=== PATIENT | female | born 2000 | race Caucasian/White ===

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

== ENCOUNTER 2021-06-24 23:26 | Outpatient (CLI) | payer SELFPAY ==
[2021-06-25 00:13] VITALS: BP 115/74
--- NOTE | 2021-06-25 01:46 | Ultrasound Report ---
OBSTETRIC ULTRASOUND INDICATION: EGA, placenta, EFW, presentation, full MALCOM COMPARISON: No prior relevant imaging studies are available for comparison. TECHNIQUE: Transabdominal imaging was performed. FINDINGS: Single viable intrauterine is identified. lie: Transverse. Heart rate: 153 bpm. measurements are as follows: Biparietal diameter 8.8 cm, 35 weeks 4 days Head circumference 33.0 cm, 37 weeks 4 days Abdominal circumference 33.7 cm, 37 weeks 4 days Femur length 6.8 cm, 34 weeks 6 days Estimated weight at this time is 6 lbs. 10 oz. No placental abnormalities are seen. CONCLUSION: Single viable intrauterine currently in transverse position with measurements as above. Amn iotic fluid index is 18.3 cm, within normal limits. Signer Name: Alexis Blanchard MD Signed: 06/25/2021 1:42 AM Workstation Name: [id number]
[2021-06-25 01:55] LABS: Bilirubin,Urine NEG (Negative); Blood,Urine SM (Negative); Color,Urine Straw (Yellow); Mucus,Urine FEW /HPF; Protein,Urine <15 mg/dL mg/dL (Negative); Urobilinogen,Urine < 2.0 mg/dL (<2.0)
[2021-06-25 01:58] LABS: Amphetamine Screen,Urine Negative; Benzodiazepines Screen,Urine Negative; Cocaine Screen,Urine Negative; Methadone Screen,Urine Negative; Opiate Screen,Urine Negative
[2021-06-25 02:12] LABS: Cannabinoid Screen,Urine Positive
[2021-06-25 02:22] LABS: Basophils # (Auto) 0.1 K/mm3 (0.0-0.1); Basophils % (Auto) 0.7 % (0.0-1.8); Eosinophils % (Auto) 0.5 % (0.0-4.3); Hematocrit 27.4 % (30.3-42.9); Hemoglobin 8.7 gm/dl (10.1-14.3); Lymphocytes # (Auto) 2.5 K/mm3 (1.2-5.4); Lymphocytes % (Auto) 30.9 % (13.4-35.0); Mean Corpuscular HGB Conc 32 % (30-34); Mean Corpuscular Volume 79 fl (79-97); Monocytes # (Auto) 0.4 K/mm3 (0.0-0.8); Monocytes % (Auto) 4.9 % (0.0-7.3); Platelet Count 115 K/mm3 (140-440); Red Blood Count 3.47 M/mm3 (3.65-5.03); Red Cell Distribution Width 15.1 % (13.2-15.2)
[2021-06-25 02:50] LABS: HCG,Quantitative 7506 mIU/mL (0-4)
[2021-06-25 02:59] LABS: Hepatitis C Virus Antibody Non-Reactive (NonReactive)
== END 2021-06-25 02:40 | disposition home or self-care (01) ==
LOC: TRG 23:26 → APU 23:28 → TRG 06-25 02:40
PROVIDERS: ATTEND Obstetrics & Gynecology
DX: O26.893 Other specified pregnancy related conditions, third trimester (principal); R10.9 Unspecified abdominal pain; Z3A.37 37 weeks gestation of pregnancy
CPT/HCPCS: 36415; 59025; 76816; 80307; 81001; 84702; 85025; 86592; 86706; 86762; 86803; 86850; 86900; 86901; 87086; 87806

== ENCOUNTER 2021-06-28 02:22 | Inpatient (IN) | payer SELFPAY ==
[2021-06-28 03:58] LABS: Amphetamine Screen,Urine PRESUMPTIVE NEGATIVE; Benzodiazepines Screen,Urine PRESUMPTIVE NEGATIVE; Cannabinoid Screen,Urine PRESUMPTIVE POSITIVE; Cocaine Screen,Urine PRESUMPTIVE NEGATIVE; Methadone Screen,Urine PRESUMPTIVE NEGATIVE; Opiate Screen,Urine PRESUMPTIVE NEGATIVE
[2021-06-28 04:22] LABS: Bilirubin,Urine Negative (Negative); Color,Urine Yellow (Yellow)
[2021-06-28 04:23] LABS: Blood,Urine Negative (Negative); Protein,Urine <15 mg/dL mg/dL (Negative)
[2021-06-28 04:48] LABS: RBC,Urine < 1.0 /HPF (0.0-6.0)
[2021-06-28] MEDS ORDERED: ONDANSETRON 4 MG/2 ML INJ IV PRN ×2 (05:33→08:59)
[2021-06-28] MEDS ORDERED: ACETAMINOPHEN 325 MG TAB PO PRN (05:33)
[2021-06-28] MEDS ORDERED: AMPICILLIN/NS 2 GM/100 ML 2 GM/100 ML BAG IV ONE (05:33)
[2021-06-28] MEDS ORDERED: DOCUSATE SODIUM 100 MG CAP PO PRN (05:33)
--- NOTE | 2021-06-28 05:39 | Ultrasound Report ---
ULTRASOUND OBSTETRIC LIMITED INDICATION / CLINICAL INFORMATION: MALCOM. Clinical Gestational Age (GA) in weeks, days: 37, 4 TECHNIQUE: Transabdominal. COMPARISON: 06/25/21 FINDINGS: HEART RATE (beats per minute): 148 AMNIOTIC FLUID INDEX (cm) = 8.1 (normal = 7-24 cm) PRESENTATION: Cephalic. ADDITIONAL FINDINGS: None. IMPRESSION: 1. Amniotic fluid index within normal limits measuring 8.1 cm. Signer Name: Oksana Cruz MD Signed: 06/28/2021 5:35 AM Workstation Name: [id number]
[2021-06-28] MEDS: LACTATED RINGERS 1,000 ML IV SCH ×2 (05:59→08:20)
[2021-06-28 06:05] LABS: Basophils # (Auto) 0.1 K/mm3 (0.0-0.1); Basophils % (Auto) 0.5 % (0.0-1.8); Eosinophils # (Auto) 0.1 K/mm3 (0.0-0.4); Eosinophils % (Auto) 1.2 % (0.0-4.3); Hematocrit 28.5 % (30.3-42.9); Hemoglobin 9.1 gm/dl (10.1-14.3); Lymphocytes # (Auto) 3.6 K/mm3 (1.2-5.4); Lymphocytes % (Auto) 34.8 % (13.4-35.0); Mean Corpuscular HGB Conc 32 % (30-34); Mean Corpuscular Volume 80 fl (79-97); Monocytes # (Auto) 0.6 K/mm3 (0.0-0.8); Platelet Count 128 K/mm3 (140-440); Red Blood Count 3.57 M/mm3 (3.65-5.03); Red Cell Distribution Width 15.5 % (13.2-15.2)
[2021-06-28 06:57] LABS: Hepatitis C Virus Antibody Non-Reactive (NonReactive)
--- NOTE | 2021-06-28 07:47 | History and Physical Report ---
History of Present Illness Date of examination: 06/28/21 Date of admission: 06/28/21 05:33 Chief complaint: contractions History of present illness: Pt presents at 37.4 weeks dated by lmp c/w sono she had done on 06/24/21 in triage c/o contractions. She had not had any care this . She had cervical change to 5cm from 4cm while in triage. Pt admitted for observation of labor change. Plan of care d/w pt. All questions were addressed and answered. Will start ampicillin at this time as pt labor may progress and w/o care, her GBS status is not known. Past History Past Medical History: no pertinent history Past Surgical History: no surgical history [employer] History: denies: abnormal PAP smear - Obstetrical History Expected Date of Delivery: 07/15/21 Actual Gestation: 37 Week(s) 4 Day(s) : 6 Medications and Allergies Allergies Allergy/AdvReac Type Severity Reaction Status Date / Time No Known Allergies Allergy Verified 01/03/17 13:16 Home Medications Medication Instructions Recorded Confirmed Last Taken Type No Known Home Medications [No 07/07/19 07/07/19 Unknown History Reported Home Medications] Active Meds: Active Medications Acetaminophen (Acetaminophen 325 Mg Tab) 650 mg PO Q4H PRN PRN Reason: Pain MILD(1-3)/Fever >100.5/LUCIO Docusate Sodium (Docusate Sodium 100 Mg Cap) 100 mg PO Q12H PRN PRN Reason: Constipation Lactated Ringer's (Lactated Ringers) 1,000 mls @ 125 mls/hr IV DIRECT ÁNGEL Last Admin: 06/28/21 05:59 Dose: 125 mls/hr Documented by: Multivitamins/Iron/Calcium ( [id number]-Or Fumarate-Folic Acid Vit Tab) 1 each PO QDAY ÁNGEL Ondansetron HCl (Ondansetron 4 Mg/2 Ml Inj) 4 mg IV Q6H PRN PRN Reason: Nausea And Vomiting - Vital Signs Vital signs: Vital Signs Temp Pulse Resp BP Pulse Ox 98.5 F 70 18 118/72 100 06/28/21 03:03 06/28/21 03:03 06/28/21 03:03 06/28/21 03:03 06/28/21 03:03 Temp Pulse Resp BP Pulse Ox 98.5 F 69 18 118/72 100 06/28/21 03:03 06/28/21 07:07 06/28/21 03:03 06/28/21 03:06 06/28/21 07:07 - Physical Exam Cardiovascular: Normal S1, Normal S2 Lungs: Positive: Clear to auscultation, Normal air movement Deep Tendon Reflex Grade: Normal +2 - Obstetrical FHR: category 1 Cervical Dilatation: 7 Cervical Effacement Percentage: 80 station: -1 Results Result Diagrams: 06/28/21 05:47 Abnormal lab results 06/28/21 Range/Units 05:47 RBC 3.57 L (3.65-5.03) M/mm3 Hgb 9.1 L (10.1-14.3) gm/dl Hct 28.5 L (30.3-42.9) % MCH 25 L (28-32) pg RDW 15.5 H (13.2-15.2) % Plt Count 128 L (140-440) K/mm3 All other labs normal. Assessment and Plan - Patient Problems (1) 37 weeks gestation of Current Visit: Yes Status: Acute (2) No care in current in third trimester Current Visit: No Status: Acute (3) Active labor at term Current Visit: Yes Status: Acute Plan to address problem: -epidural placement -antibx for unknown gbs -anticipate
[2021-06-28] MEDS ORDERED: ePHEDrine SULFATE 50 MG/1 ML INJ ONE (08:56)
[2021-06-28] MEDS ORDERED: LACTATED RINGERS 250 ML IV SOLN IV ONE (08:59)
[2021-06-28] MEDS ORDERED: NalbUPHINE 10 MG/1 ML INJ IV PRN (08:59)
[2021-06-28] MEDS ORDERED: NALOXONE 2 MG/2 ML INJ IV PRN (08:59)
[2021-06-28] MEDS ORDERED: diphenhydrAMINE 50 MG/ML VIAL IV PRN (08:59)
[2021-06-28] MEDS ORDERED: ePHEDrine SULFATE 50 MG/1 ML INJ IV PRN (08:59)
[2021-06-28] MEDS ORDERED: fentaNYL-BUPIV 2 MCG/ML-0.125% 200 MCG/100 ML BAG EPIDURAL SCH (09:00)
--- NOTE | 2021-06-28 09:25 | Anesthesia Consultation ---
Anesthesia Consult and Med Hx Date of service: 06/28/21 - Airway Anesthetic Teeth Evaluation: Good ROM Head & Neck: Adequate Mental/Hyoid Distance: Adequate Mallampati Class: Class I Intubation Access Assessment: Good - Pulmonary Exam CTA: Yes - Cardiac Exam Cardiac Exam: RRR - Pre-Operative Health Status ASA Pre-Surgery Classification: ASA2 Proposed Anesthetic Plan: Epidural - Pulmonary Hx Smoking: No Hx Asthma: No COPD: No Hx Pneumonia: No Hx Sleep Apnea: No - Cardiovascular System Hx Hypertension: No Hx Heart Attack/AMI: No Hx Angina: No - Central Nervous System Hx Seizures: No Hx Psychiatric Problems: No - Gastrointestinal Hx Gastroesophageal Reflux Disease: No - Endocrine Hx Renal Disease: No Hx End Stage Renal Disease: No Hx Liver Disease: No Hx Insulin Dependent Diabetes: No Hx Non-Insulin Dependent Diabetes: No Hx Hypothyroidism: No Hx Hyperthyroidism: No - Hematic Hx Anemia: Yes Hx Sickle Cell Disease: No - Other Systems Hx Alcohol Use: No
--- NOTE | 2021-06-28 09:32 | Progress Note ---
Labor Epidural - Labor Epidural Start Time: 09:05 Stop Time: 09:21 Performed by:: DILSHAD ARAUJO (Elli Magdaleno BARBARA) Procedure: Patient is requesting epidural for labor and pain. H&P, labs were reviewed. Patient IDed, H&P reviewed, all questions and concerns were answered, and consent was signed. Timeout was performed at bedside. Patient in sitting position. Sterile prep and drape was performed. 3ml of 1% lidocaine skin wheal at L[3]- L [4]. 17-gauge Tuohy epidural needle was advanced to loss of resistance with saline technique 4cm. Negative CSF negative blood. Epidural catheter advanced to [9] centimeters. [negative] Aspiration [negative] test dose. Sterile dressing applied. Patient tolerated procedure.
[2021-06-28] MEDS ORDERED: OXYTOCIN DRIP 30,000 MILLIUNITS/500 ML BAG IV ONE ×2 (09:52→15:04)
[2021-06-28] MEDS ORDERED: PRENATAL VIT27-FE FUMARATE-FOLIC ACID VIT TAB PO SCH (10:00)
[2021-06-28] MEDS: AMPICILLIN/NS 1 GM/50 ML 1 GM/50 ML BAG IV SCH ×2 (11:46→15:21)
[2021-06-28] MEDS ORDERED: METHYLERGONOVINE MALEATE 0.2 MG/ML VIAL IM ONE (15:53)
--- NOTE | 2021-06-28 16:19 | Procedure Note ---
OB Delivery Note - Delivery Date of Delivery: 06/28/21 Surgeon: ROBINSON WALKER Estimated blood loss: other (350ml) - Vaginal Delivery presentation: vertex Delivery position: OA Intrapartum events: prolonged latent phase Delivery induction: none Delivery augmentation: pitocin Delivery monitor: external FHT, external uterine, internal FHT Route of delivery: Delivery placenta: manual (Placent manually extracted due to separation of cord from the placenta. It was examained and all pieces were present. also uterine sweep yielded a gritty texture of the uteus. pt tolearated the procedure well.) Delivery cord: 3 umbilical vessels Delivery laceration: none Anesthesia: intravenous, epidural Delivery comments: Delivery as above. delivered over an intact perinum, with 3 pushes. Ant shoulder and rest of delivered w/o difficulty. Cord clamped x 2 and cut x1. infant placed on maternal abdomen. Cord blood collected.Placenta manually extracted in its entirety. No lacerations were noted. and mother stable in LDR. NICU present for delivery. - Infant A at 1 minute: 8 at 5 minutes: 9 Gender: Male (6lbs 13 oz)
[2021-06-28] MEDS ORDERED: LANOLIN/ZINC/DIMETHICONE (LANSINOH) 7 GM TP PRN (16:22)
[2021-06-28] MEDS ORDERED: WITCH HAZEL/ GLYCERIN PAD TP PRN (16:22)
[2021-06-28] MEDS ORDERED: MAGNESIUM HYDROXIDE (MOM) ORAL LIQD UDC PO PRN (16:22)
[2021-06-28] MEDS: IBUPROFEN 600 MG TAB PO SCH (23:06)
[2021-06-29] MEDS ORDERED: TETANUS,DIPH,PERTUSS(ACELL) VACCINE 0.5 ML SYRINGE IM ONE (06:00)
[2021-06-29] MEDS: oxyCODONE /ACETAMINOPHEN 5-325MG TAB PO PRN ×3 (06:02→21:52)
[2021-06-29 07:27] LABS: Hematocrit 24.4 % (30.3-42.9); Hemoglobin 7.7 gm/dl (10.1-14.3)
--- NOTE | 2021-06-29 08:48 | Progress Note ---
Assessment and Plan VSSAF; pt with asymtomatic anemia s/p acute blood loss. Reports ambulating, voiding, and eating well and without difficulties. Discharge precautions and POC reviewed. Questions encouraged and addressed. Pt verbalizes understanding and agrees to POC. Pt reports desires for depo-provera for control prior to discharge. Pt declines elective circumcision for . - Patient Problems (1) (normal spontaneous vaginal delivery) Current Visit: Yes Status: Acute Plan to address problem: continue pathway Subjective - Subjective Date of service: 06/29/21 Principal diagnosis: PP Day 1, s/p Patient reports: appetite normal, voiding normally, pain well controlled, ambulating normally [place]: doing well, nursing well Objective - Vital Signs Latest vital signs: Vital Signs Temp Pulse Resp BP BP Pulse Ox Pulse Ox 06/29/21 07:12 98.5 F 61 16 97/54 96 06/29/21 06:02 12 06/29/21 00:18 98.1 F 63 20 102/57 98 06/28/21 23:06 12 06/28/21 20:30 98 06/28/21 19:42 98.2 F 65 20 95/50 99 06/28/21 18:10 97.7 F 63 18 110/57 99 99 06/28/21 17:24 56 L 121/51 06/28/21 17:08 55 L 103/51 06/28/21 16:54 55 L 115/59 06/28/21 16:38 64 99/55 06/28/21 16:28 82 91 06/28/21 16:24 56 L 100 06/28/21 16:23 74 99/60 06/28/21 16:22 63 87 06/28/21 16:19 53 L 100 06/28/21 16:16 67 88 06/28/21 16:14 57 L 100 06/28/21 16:11 60 88 06/28/21 16:09 93 H 101/58 100 06/28/21 16:04 61 96 06/28/21 15:59 61 96 06/28/21 15:57 55 L 94 06/28/21 15:54 62 100 06/28/21 15:53 73 117/55 06/28/21 15:49 79 94 06/28/21 15:44 57 L 100 06/28/21 15:40 66 126/60 80 L 06/28/21 15:39 60 100 06/28/21 15:34 58 L 83 L 06/28/21 15:33 67 78 L 06/28/21 15:29 53 L 100 06/28/21 15:25 61 92/58 06/28/21 15:24 63 100 06/28/21 15:19 72 100 06/28/21 15:17 65 91 06/28/21 15:14 56 L 100 06/28/21 15:09 74 112/57 100 06/28/21 15:04 85 98 06/28/21 15:02 79 89 06/28/21 14:59 86 83 L 06/28/21 14:56 81 90 06/28/21 14:54 67 100 06/28/21 14:53 70 110/68 06/28/21 14:49 64 100 06/28/21 14:44 63 100 06/28/21 14:39 62 100 06/28/21 14:38 60 104/61 06/28/21 14:34 55 L 100 06/28/21 14:29 58 L 100 06/28/21 14:24 54 L 100 06/28/21 14:23 54 L 98/57 06/28/21 14:19 59 L 100 06/28/21 14:14 61 100 06/28/21 14:09 58 L 98/53 100 06/28/21 14:04 55 L 100 06/28/21 13:59 52 L 100 06/28/21 13:54 52 L 100/58 100 06/28/21 13:49 54 L 100 06/28/21 13:44 56 L 100 06/28/21 13:39 58 L 91/51 100 06/28/21 13:34 57 L 100 06/28/21 13:29 72 89 06/28/21 13:28 60 77 L 06/28/21 13:27 57 L 98/48 06/28/21 13:24 77 98 06/28/21 13:21 74 100/60 06/28/21 13:19 78 100 06/28/21 13:16 77 90 06/28/21 13:14 60 100 06/28/21 13:10 68 99/58 06/28/21 13:09 58 L 100 06/28/21 13:04 82 100 06/28/21 12:59 63 100 06/28/21 12:54 83 135/77 100 06/28/21 12:49 69 100 06/28/21 12:45 68 85 06/28/21 12:44 50 L 100 06/28/21 12:40 59 L 96/53 06/28/21 12:39 55 L 100 06/28/21 12:34 61 100 06/28/21 12:29 67 100 06/28/21 12:25 72 97/56 06/28/21 12:24 61 100 06/28/21 12:21 82 88 06/28/21 12:19 86 99 06/28/21 12:15 68 85 06/28/21 12:14 66 100 06/28/21 12:09 58 L 108/49 100 06/28/21 12:04 81 94 06/28/21 12:03 94 H 90 06/28/21 11:59 83 100 06/28/21 11:55 69 93 06/28/21 11:54 65 100 06/28/21 11:49 55 L 100 06/28/21 11:44 62 100 06/28/21 11:40 73 105/55 06/28/21 11:39 63 100 06/28/21 11:35 71 85 06/28/21 11:34 61 100 06/28/21 11:30 66 88 06/28/21 11:29 69 98 06/28/21 11:24 69 107/62 94 06/28/21 11:19 93 H 99 06/28/21 11:14 76 99 06/28/21 11:13 69 89 06/28/21 11:09 65 100 06/28/21 11:08 74 88/53 06/28/21 11:04 63 100 06/28/21 10:59 60 100 06/28/21 10:54 65 84/48 100 06/28/21 10:49 63 100 06/28/21 10:44 60 100 06/28/21 10:40 98.3 F 06/28/21 10:39 65 100 06/28/21 10:38 58 L 88/50 06/28/21 10:34 62 90/51 100 06/28/21 10:29 68 99 06/28/21 10:24 66 99 06/28/21 10:23 63 87/48 06/28/21 10:19 70 99 06/28/21 10:14 61 99 06/28/21 10:09 68 87/51 100 06/28/21 10:04 63 100 06/28/21 09:59 73 99 06/28/21 09:57 59 L 92/50 06/28/21 09:54 67 100 06/28/21 09:51 67 94/51 06/28/21 09:49 57 L 94/51 99 06/28/21 09:47 56 L 93/50 06/28/21 09:45 59 L 92/50 06/28/21 09:44 59 L 100 06/28/21 09:43 62 95/51 06/28/21 09:41 59 L 95/50 06/28/21 09:39 58 L 96/53 100 06/28/21 09:37 59 L 100/52 06/28/21 09:35 61 105/57 06/28/21 09:34 60 100 06/28/21 09:33 57 L 109/65 06/28/21 09:31 62 104/56 06/28/21 09:29 58 L 105/60 100 06/28/21 09:27 71 112/61 06/28/21 09:25 60 111/61 06/28/21 09:24 75 94 06/28/21 09:23 85 124/66 06/28/21 09:21 65 121/67 06/28/21 09:19 65 111/66 100 06/28/21 09:17 77 127/71 06/28/21 09:16 68 134/62 06/28/21 09:14 73 98 06/28/21 09:13 74 117/65 06/28/21 09:09 69 93 06/28/21 09:07 83 94 06/28/21 09:03 76 100 06/28/21 09:00 65 116/73 06/28/21 08:58 68 100 06/28/21 08:53 61 98 06/28/21 08:52 74 90 Intake and Output 06/28/21 06/29/21 06/29/21 23:59 07:59 15:59 Intake Total 240 Output Total 1400 Balance -1400 240 Intake: Oral 240 Output: Urine 1400 Void 1400 Other: Total, Intake Amount 240 Total, Output Amount 500 Estimated Blood Loss 350 - Exam Breasts: Present: normal Cardiovascular: Present: Regular rate Lungs: Present: Normal air movement Abdomen: Present: normal appearance, soft. Absent: distention Vulva: both: normal Uterus: Present: normal, firm, fundal height below umbilicus Extremities: Present: normal Comments: scant lochia noted on harpreet-pad - Labs Labs: Abnormal lab results 06/29/21 Range/Units 06:50 Hgb 7.7 L (10.1-14.3) gm/dl Hct 24.4 L (30.3-42.9) %
--- NOTE | 2021-06-29 09:29 | Post Anesthesia Evaluation ---
- Post Anesthesia Evaluation Patient Participated: Yes Airway Patent: Yes Stable Respiratory Function: Yes Nausea/Vomiting: No Temp > 96.8F: Yes Pain Manageable: Yes Adequeate Hydration: Yes Anesthesia Complications: No Block Receding Appropriately: Yes Patient on Ventilator: No
[2021-06-29] MEDS: IBUPROFEN 600 MG TAB PO SCH ×2 (10:55→18:50)
[2021-06-29] MEDS: FERROUS SULFATE 325 MG TAB PO SCH ×2 (14:03→21:52)
[2021-06-29] MEDS ORDERED: medroxyPROGESTERone ACETATE 150 MG/ML SYRINGE IM ONE (18:06)
[2021-06-30] MEDS: IBUPROFEN 600 MG TAB PO SCH ×2 (00:54→11:48)
[2021-06-30] MEDS: FERROUS SULFATE 325 MG TAB PO SCH (08:22)
[2021-06-30] MEDS ORDERED: medroxyPROGESTERone ACETATE 150 MG/ML SYRINGE IM ONE ×2 (09:00)
--- NOTE | 2021-06-30 09:06 | Discharge Summary ---
Providers - Providers Date of Admission: 06/28/21 05:33 Date of discharge: 06/30/21 Attending physician: ROBINSON ARAIZA 06/30/21 07:32 psychiatry consult [Consult to Mental Health] [CONS] Routine Reason For Exam: [place] 12 Primary care physician: ROBINSON ARAIZA Hospitalization Reason for admission: active labor, IUP at term Delivery: Episiotomy: none Laceration: none Other procedures: none complications: none Discharge diagnosis: IUP at term delivered baby: male Condition at discharge: Good Disposition: 01 HOME / SELF CARE / HOMELESS - Discharge Diagnoses (1) (normal spontaneous vaginal delivery) Status: Acute Comment: Pt stable and denies SI/HI. May dc when cleared by Psych. RN and Dr. Araiza aware Plan - Provider Discharge Summary Activity: routine, no sex for 6 weeks, no heavy lifting 4 weeks, no strenuous exercise Diet: routine Instructions: routine Additional instructions: [] Smoking cessation referral if applicable(refer to patient education folder for contact #) [] Refer to [facility]'s [facility] Booklet Call your doctor immediately for: * Fever > 100.5 * Heavy vaginal bleeding ( >1 pad per hour) * Severe persistent headache * Shortness of breath * Reddened, hot, painful area to leg or breast * Drainage or odor from incision. * Keep incision clean and dry at all times and follow doctor's instructions regarding bathing/showering Congratulations! Please call [phone] and schedule your visit in 4 weeks. Thank you! - Follow up plan Follow up: ROBINSON ARAIZA MD [Primary Care Provider] - 7 Days
--- NOTE | 2021-06-30 12:14 | Consultation ---
History of Present Illness - Reason for Consult Consult date: 06/30/21 Reason for consult: MHE - History of Present Psychiatric Illness The patient was seen today. She is a/o x 3. She is calm and cooperative. She was admitted for childbirth. Her is at bedside. So is the child's father, in which the patient asks him to step out of the room The patient says she had a rough because she has four other children 5 and under. She says she's been feeling stressed. She denies any psych history or ever being on any psych medications. She also denies SI/HI or any past attempt. She denies any fear or feeling of endangerment. The patient says she is not interested any medication at this time but would consider talking to a therapist from time to time. She denies any illicit drug use, alcohol or nicotine. PAST PSYCHIATRIC HISTORY: Diagnoses: Denies Suicide attempts or Self-harm behavior: Denies Prior psychiatric hospitalizations: Denies Substance Abuse history: Denies Previous psychiatric medications tried: Denies Outpatient treatment: Denies PAST MEDICAL HISTORY: None reported or document Family Psychiatric History: None reported or documented SOCIAL HISTORY Marital Status: Living Arrangements: Lives with family Employment Status: Employed Access to guns/weapons: Denies Education: History of Abuse: Denies Legal History: Denies REVIEW OF SYSTEMS Constitutional: Negative for weight loss ENT: Negative for stridor Respiratory: Negative for cough or hemoptysis All other systems reviewed and are negative MENTAL STATUS EXAMINATION General Appearance and Behavior: Age appropriate, good hygiene, wearing appropriate clothes. calm, cooperative Cooperation: Cooperative Psychomotor Behavior: Psychomotor normal Mood: okay Affect and affective range: congruent with stated mood Thought Process: goal oriented Thought Content: None Speech: normal tone and pace Suicidal Ideation: Denies Homicidal Ideation: Denies Hallucinations: Denies Delusions:None elicited Impulse Control: good Insight and Judgment: Good Memory: good Attention: attentive Orientation: a/o x 3 Assessment (1)Mental Health Eval Current Visit: Yes Status: Acute Treatment Plan No meds at this time Sitter: per primary Medical: per primary Disposition: Do not recommend acute psychiatric inpatient treatment Will sign off. Thanks The sitter to give the patient outpatient resources Case staffed with Dr. Dubose Medications and Allergies Allergies Allergy/AdvReac Type Severity Reaction Status Date / Time No Known Allergies Allergy Verified 01/03/17 13:16 Home Medications Medication Instructions Recorded Confirmed Last Taken Type No Known Home Medications [No 07/07/19 06/30/21 Unknown History Reported Home Medications] Active Meds: Active Medications Bisacodyl (Bisacodyl 10 Mg Rect Supp) 10 mg [place] BID PRN PRN Reason: Constipation Ferrous Sulfate (Ferrous Sulfate 325 Mg Tab) 325 mg PO TID [facility] Last Admin: 06/30/21 08:22 Dose: 325 mg Documented by: Ibuprofen (Ibuprofen 600 Mg Tab) 600 mg PO Q6H [facility] Last Admin: 06/30/21 11:48 Dose: 600 mg Documented by: Magnesium Hydroxide (Magnesium Hydroxide (Mom) Oral Liqd Udc) 30 ml PO HS PRN PRN Reason: Constipation Multi-Ingredient Ointment (Lanolin/Zinc/Dimethicone (Lansinoh) 7 Gm) 1 applic TP PRN PRN PRN Reason: Sore Nipples Oxycodone/Acetaminophen (Oxycodone /Acetaminophen 5-325mg Tab) 1 tab PO Q6H PRN PRN Reason: Pain, Moderate (4-6) Last Admin: 06/29/21 21:52 Dose: 1 tab Documented by: Witch Susan/Glycerin (Witch Susan/ Glycerin Pad) 1 each TP PRN PRN PRN Reason: Hemorrhoid/cleansing/soothing Mental Status Exam - Vital signs Last Vital Signs Temp 97.9 F 06/30/21 08:52 Pulse 61 06/30/21 08:52 Resp 17 06/30/21 08:52 BP 118/63 06/30/21 08:52 Pulse Ox 98 06/30/21 08:52 Results Result Diagrams: 06/29/21 06:50 All other labs normal.
[2021-06-30 17:28] VITALS: BP 112/70
== END 2021-06-30 14:00 | disposition home or self-care (01) | DRG 806 ==
LOC: TRG 02:22 → APU 02:38 → TRG 05:33 → APU 05:33 → OBSVTOIN 05:33 → LD 08:55 → OB 18:21
PROVIDERS: ADMIT Obstetrics & Gynecology; ATTEND Obstetrics & Gynecology
PROC: 10E0XZZ Delivery of Products of Conception, External Approach (ICD-10-PCS; principal; 2021-06-28)
PROC: 3E0R3BZ Introduction of Anesthetic Agent into Spinal Canal, Percutaneous Approach (ICD-10-PCS; 2021-06-28)
PROC: 00HU33Z Insertion of Infusion Device into Spinal Canal, Percutaneous Approach (ICD-10-PCS; 2021-06-28)
PROC: 3E0234Z Introduction of Serum, Toxoid and Vaccine into Muscle, Percutaneous Approach (ICD-10-PCS; 2021-06-29)
DX: O90.81 Anemia of the puerperium (principal); D62 Acute posthemorrhagic anemia; Z37.0 Single live birth; Z3A.37 37 weeks gestation of pregnancy; Z20.822 Contact with and (suspected) exposure to COVID-19; Z23 Encounter for immunization
CPT/HCPCS: 36415; 59025; 76815; 80307; 81001; 84112; 85014; 85018; 85025; 86592; 86706; 86762; 86803; 86850; 86900; 86901; 87806; 88307; G0378; J0290; J1050; J2405; J2590; J7120; U0003